=== PATIENT | female | born 1940 | race American Indian/Alaskan Native ===

== ENCOUNTER 2017-08-10 16:02 | Outpatient (CLI) | payer MEDICARE ==
--- NOTE | 2017-08-10 16:34 | XRay Report ---
XRAY LEFT SHOULDER THREE VIEWS: 08/10/17 16:02:00 CLINICAL: Left shoulder pain. FINDINGS: Mild osteopenia. No fracture or dislocation. Mild glenohumeral joint arthritis with small inferior humeral osteophyte. Irregularity at the greater tuberosity of the humerus. Moderate acromioclavicular joint arthritis. A small subacromial osteophyte. IMPRESSION: Moderate degenerative change. A subacromial osteophyte and irregularity at the greater tuberosity of the humerus suggestive of rotator cuff disease.
== END 2017-08-10 16:03 | disposition home or self-care (01) ==
LOC: SPVIMAG 16:02
PROVIDERS: ATTEND Orthopaedic Surgery Sports Medicine
DX: M19.012 Primary osteoarthritis, left shoulder (principal); M85.812 Other specified disorders of bone density and structure, left shoulder; I10 Essential (primary) hypertension; F32.9 Major depressive disorder, single episode, unspecified

== ENCOUNTER 2017-09-08 14:04 | Outpatient (CLI) | payer MEDICARE ==
--- NOTE | 2017-09-08 18:33 | XRay Report ---
FINAL REPORT PROCEDURE: XR KNEE 4+V LT TECHNIQUE: Left knee, four views HISTORY: LEFT KNEE PAIN COMPARISON: No prior studies are available for comparison. FINDINGS: There are tricompartmental osteoarthritic changes, with joint space narrowing and osteophyte formation. No acute fracture or dislocation is seen. No joint effusion. IMPRESSION: Severe tricompartmental osteoarthritic changes
== END 2017-09-08 14:05 | disposition home or self-care (01) ==
LOC: SPVIMAG 14:04
PROVIDERS: ATTEND Orthopaedic Surgery Sports Medicine
DX: M17.12 Unilateral primary osteoarthritis, left knee (principal)